=== PATIENT | female | born 1985 | race Caucasian/White ===

== ENCOUNTER 2019-03-12 07:10 | Inpatient (IN) ==
[2019-03-12] MEDS ORDERED: CITRIC ACID/SODIUM CITRATE 30 ML UDCUP PO ONE (07:19)
[2019-03-12] MEDS ORDERED: FAMOTIDINE 20 MG/2 ML VIAL IV ONE (07:19)
[2019-03-12] MEDS ORDERED: ceFAZolin 3,000 MG in SYRINGE 1 EACH IV ONE (07:19)
[2019-03-12] MEDS ORDERED: OXYTOCIN 10 UNIT/ML VIAL IM ONE (07:19)
[2019-03-12] MEDS ORDERED: OXYTOCIN/LR 30 UNIT/1,000 ML BAG IV ONE (07:26)
[2019-03-12] MEDS: LACTATED RINGERS 1,000 ML IV SCH ×2 (07:37→08:27)
[2019-03-12 07:43] LABS: Basophils % 0.4 % (0.0-0.8); Eosinophils # 0.1 10*3/uL (0.0-0.87); Eosinophils % 0.6 % (0.00-10.9); Hematocrit 39.6 VOL% (35.7-47.0); Hemoglobin 12.4 GM/DL (12.0-16.0); Immature Granulocytes % 0.4 %; Immature Granulocytes Absolute 0.04 #; Lymphocytes # 2.1 10*3/uL (1.4-4.0); Lymphocytes % 21.4 % (21.3-54.2); Mean Corpuscular HGB Conc 31.3 GM/DL (32-36); Mean Corpuscular Volume 84.3 FL (87-102); Monocytes % 7.1 % (1.7-12.7); Neutrophils % 70.1 % (38.7-73.9); Platelet Count 263 T/CUMM (130-400); Red Cell Distribution Width 13.6 % (9.3-17.3); White Blood Count 9.6 T/CUMM (4-12)
[2019-03-12] MEDS ORDERED: METOCLOPRAMIDE 10 MG/2 ML VIAL IV ONE (08:07)
[2019-03-12] MEDS ORDERED: BUPIVACAINE 0.5% 50 ML VIAL ONE (08:16)
[2019-03-12 08:29] LABS: Alanine Aminotransferase 14 U/L (13-56); Albumin 2.2 G/DL (3.4-5.0); Alkaline Phosphatase 180 U/L (45-117); Aspartate Amino Transferase 12 U/L (0-37); Bilirubin,Total < 0.39 MG/DL (0.2-1.0); Blood Urea Nitrogen 10 MG/DL (7-18); Calcium 9.1 MG/DL (8.5-10.1); Glucose 78 MG/DL (74-106); Osmolality,Calculated 272.7 MOS/KG (273-304); Total Protein 7.2 G/DL (6.4-8.3)
[2019-03-12 09:50] LABS: Cord Arterial Blood HCO3 21.1 MMOL/L
[2019-03-12 09:51] LABS: Cord Venous Blood HCO3 22.7 MMOL/L; Cord Venous Blood PCO2 40.9 MMHG; Cord Venous Blood PO2 25.8 MMHG
[2019-03-12 09:53] LABS: Apearance,Urine CLEAR (Clear); Bilirubin,Urine Negative (Negative); Blood, Urine Negative (Negative); Glucose,Urine (UA) Negative (Negative); Ketones,Urine Negative (Negative); Mucus,Urine Occasional /LPF (Occasional); Nitrite,Urine Negative (Negative); Protein,Urine Negative; RBC,Urine 3 /HPF (0-4); Squamous Epithelial Cell,Urine Occasional /HPF (0-10); Urine Color Yellow (Yellow); Urine Specific Gravity 1.029 (1.001-1.035); Urine Urobilinogen < 2.0 EU/DL (0.2-1.0); WBC,Urine 2 /HPF (0-6)
[2019-03-12] MEDS ORDERED: MAGNESIUM HYDROXIDE SUSP 30 ML UDCUP PO PRN (10:07)
[2019-03-12] MEDS ORDERED: OXYTOCIN/LR 20 UNIT/1,000 ML BAG IV ONE (10:07)
[2019-03-12] MEDS ORDERED: IBUPROFEN 800 MG TABLET PO PRN (10:07)
[2019-03-12] MEDS ORDERED: ACETAMINOPHEN 325 MG TABLET PO PRN (10:07)
[2019-03-12] MEDS ORDERED: ONDANSETRON 4 MG/2 ML VIAL IV PRN (10:07)
[2019-03-12] MEDS ORDERED: RHO(D) IMMUNE GLOBULIN 300 MCG SYRINGE IM ONE (10:07)
[2019-03-12] MEDS ORDERED: KETOROLAC 30 MG/1 ML VIAL ONE (10:30)
[2019-03-12] MEDS ORDERED: ONDANSETRON 4 MG/2 ML VIAL ONE (10:30)
[2019-03-12] MEDS ORDERED: LACTATED RINGERS 1,000 ML IV SCH (10:30)
[2019-03-12] MEDS ORDERED: fentaNYL 100 MCG/2 ML VIAL ONE (10:30)
[2019-03-12] MEDS ORDERED: PHENYLEPHRINE 1 MG/10 ML SYRINGE IV ONE (10:30)
[2019-03-12] MEDS ORDERED: PROMETHAZINE 25 MG/1 ML VIAL ONE (10:30)
[2019-03-12] MEDS ORDERED: BUPIVACAINE SPINAL 0.75% 2 ML AMP SPINAL ONE (10:30)
[2019-03-12] MEDS ORDERED: DEXAMETHASONE 4 MG/1 ML VIAL ONE (10:30)
[2019-03-12] MEDS ORDERED: LACTATED RINGERS 1,000 ML IV ONE (10:30)
[2019-03-12] MEDS ORDERED: MORPHINE 10 MG/10 ML VIAL ONE (10:30)
[2019-03-12] MEDS ORDERED: SODIUM CHLORIDE 0.9% 100 ML IV ONE (10:31)
[2019-03-12] MEDS: LEVALBUTEROL 0.63 MG/3 ML NEB RESP TX SCH ×4 (10:43→20:53)
[2019-03-12] MEDS ORDERED: ACETAMINOPHEN 500 MG TABLET PO PRN (11:15)
[2019-03-12] MEDS: IBUPROFEN 800 MG TABLET PO SCH ×2 (12:52→19:22)
[2019-03-12] MEDS ORDERED: HYDROmorphone 2 MG/1 ML VIAL IV ONE (13:54)
[2019-03-12] MEDS: ceFAZolin 1,000 MG in SYRINGE 1 EACH IV SCH (17:12)
[2019-03-12 17:23] LABS: Basophils % 0.2 % (0.0-0.8); Hematocrit 34.5 VOL% (35.7-47.0); Hemoglobin 11.1 GM/DL (12.0-16.0); Immature Granulocytes % 0.4 %; Immature Granulocytes Absolute 0.05 #; Lymphocytes # 1.2 10*3/uL (1.4-4.0); Lymphocytes % 8.6 % (21.3-54.2); Mean Corpuscular HGB Conc 32.2 GM/DL (32-36); Mean Corpuscular Volume 83.9 FL (87-102); Mean Platelet Volume 11.8 FL (9.6-12.0); Monocytes % 3.2 % (1.7-12.7); Neutrophils % 87.6 % (38.7-73.9); Platelet Count 222 T/CUMM (130-400); Red Blood Count 4.11 MC/CUMM (3.8-5.5); Red Cell Distribution Width 13.4 % (9.3-17.3); White Blood Count 13.8 T/CUMM (4-12)
[2019-03-12] MEDS ORDERED: guaiFENesin 200 MG/10 ML UDCUP PO PRN (19:28)
[2019-03-12] MEDS: DOCUSATE SODIUM 100 MG CAPSULE PO SCH (20:06)
[2019-03-12] MEDS ORDERED: oxyCODONE/ACETAMINOPHEN 5-325 MG TABLET PO PRN (20:42)
[2019-03-12] MEDS: oxyCODONE/ACETAMINOPHEN 5-325 MG TABLET PO PRN (23:17)
[2019-03-13] MEDS: ceFAZolin 1,000 MG in SYRINGE 1 EACH IV SCH (01:44)
[2019-03-13] MEDS: IBUPROFEN 800 MG TABLET PO SCH ×3 (01:48→16:30)
[2019-03-13] MEDS: LEVALBUTEROL 0.63 MG/3 ML NEB RESP TX SCH ×4 (03:16→19:18)
[2019-03-13 05:37] LABS: Basophils % 0.3 % (0.0-0.8); Eosinophils # 0.1 10*3/uL (0.0-0.87); Eosinophils % 0.5 % (0.00-10.9); Hematocrit 32.1 VOL% (35.7-47.0); Hemoglobin 10.2 GM/DL (12.0-16.0); Immature Granulocytes % 0.4 %; Immature Granulocytes Absolute 0.05 #; Lymphocytes # 2.4 10*3/uL (1.4-4.0); Lymphocytes % 20.9 % (21.3-54.2); Mean Corpuscular HGB Conc 31.8 GM/DL (32-36); Mean Corpuscular Volume 84.7 FL (87-102); Mean Platelet Volume 12.4 FL (9.6-12.0); Neutrophils % 69.9 % (38.7-73.9); Platelet Count 154 T/CUMM (130-400); Red Blood Count 3.79 MC/CUMM (3.8-5.5); Red Cell Distribution Width 13.8 % (9.3-17.3); White Blood Count 11.6 T/CUMM (4-12)
[2019-03-13 05:56] LABS: Platelet Estimate Normal
[2019-03-13 05:57] LABS: Anisocytosis 1+; Poikilocytosis Slight
[2019-03-13] MEDS: oxyCODONE/ACETAMINOPHEN 5-325 MG TABLET PO PRN ×3 (06:09→18:10)
[2019-03-13] MEDS: MULTIVITAMIN (PRENATAL) TABLET PO SCH (10:07)
[2019-03-13] MEDS: METOCLOPRAMIDE 10 MG TABLET PO SCH ×2 (10:07→18:15)
[2019-03-13] MEDS: DOCUSATE SODIUM 100 MG CAPSULE PO SCH ×2 (10:07→22:36)
[2019-03-13] MEDS: MAGNESIUM HYDROXIDE SUSP 30 ML UDCUP PO SCH ×2 (10:07→22:35)
[2019-03-13] MEDS ORDERED: KETOROLAC 30 MG/1 ML VIAL IV PRN (20:31)
[2019-03-13] MEDS: SIMETHICONE CHEW 80 MG TABLET PO PRN (22:35)
[2019-03-14] MEDS: LEVALBUTEROL 0.63 MG/3 ML NEB RESP TX SCH ×2 (01:00→08:10)
[2019-03-14] MEDS: METOCLOPRAMIDE 10 MG TABLET PO SCH ×2 (02:13→08:30)
[2019-03-14] MEDS: oxyCODONE/ACETAMINOPHEN 5-325 MG TABLET PO PRN ×2 (02:19→08:30)
[2019-03-14] MEDS: MULTIVITAMIN (PRENATAL) TABLET PO SCH (08:10)
[2019-03-14] MEDS: MAGNESIUM HYDROXIDE SUSP 30 ML UDCUP PO SCH (08:30)
[2019-03-14] MEDS: DOCUSATE SODIUM 100 MG CAPSULE PO SCH (08:30)
[2019-03-14] MEDS: SIMETHICONE CHEW 80 MG TABLET PO PRN (08:30)
[2019-03-14 11:10] VITALS: BP 124/78
[2019-03-14] MEDS ORDERED: DIPH/TET/ACEL PERT BOOSTER VACCINE 0.5 ML VIAL IM ONE (11:41)
== END 2019-03-14 14:40 | disposition home or self-care (01) | DRG 540 ==
LOC: N.LD 07:10 → N.OB 12:28
PROVIDERS: ADMIT Obstetrics & Gynecology; ATTEND Obstetrics & Gynecology